=== PATIENT | male | born 1980 | race Caucasian/White ===

== ENCOUNTER → 2016-10-17 | Outpatient (CLI) | payer BC | LOC: RAD 08:55 | PROVIDERS: ATTEND Specialist | DX: C71.9 Malignant neoplasm of brain, unspecified (principal) | CPT/HCPCS: 70553; A9577 ==

== ENCOUNTER → 2016-12-06 | Outpatient (CLI) | payer BC | LOC: RAD 11:00 | PROVIDERS: ATTEND Specialist | DX: C71.9 Malignant neoplasm of brain, unspecified (principal) | CPT/HCPCS: 70553; A9577 ==

== ENCOUNTER → 2017-02-01 | Outpatient (CLI) | payer BC | LOC: RAD 11:11 | PROVIDERS: ATTEND Specialist | DX: C71.9 Malignant neoplasm of brain, unspecified (principal) | CPT/HCPCS: 70553; A9577 ==